=== PATIENT | female | born 1975 | race Caucasian/White ===

== ENCOUNTER 2016-10-08 09:49 | Inpatient (IN) ==
[2016-10-08 10:16] LABS: MANUAL DIFF NEEDED? NO
[2016-10-08] MEDS ORDERED: ZOFRAN IV ONE (10:32)
[2016-10-08] MEDS ORDERED: NS 1,000 ML IV ONE (10:32)
[2016-10-08] MEDS ORDERED: TORADOL IV ONE (10:32)
[2016-10-08] MEDS ORDERED: MORPHINE IV ONE (10:33)
[2016-10-08 10:34] LABS: BILIRUBIN URINE NEGATIVE (NEGATIVE); BLOOD URINE NEGATIVE (NEGATIVE); CLARITY CLEAR (CLEAR); COLOR YELLOW; GLUCOSE URINE NEGATIVE (NEGATIVE); LEUKOCYTES URINE NEGATIVE (NEGATIVE); NITRITE URINE NEGATIVE (NEGATIVE); PROTEIN URINE NEGATIVE (NEGATIVE); SP GRAVITY URINE 1.005; UROBILINOGEN URINE NORMAL
[2016-10-08 10:36] LABS: URINE CULTURE PL NEEDED? YES; URINE EPITHELIAL CELLS >10 /HPF (<10); URINE SOURCE CLEAN CATCH; URINE WBC <10 /HPF (<10)
[2016-10-08 10:40] LABS: AGAP 9; ALBUMIN 4.1 g/dL (3.5-5.0); ALKALINE PHOSPHATASE 63 U/L (32-104); AMYLASE 46 U/L (20-200); BUN 9 mg/dL (8-22); CALCIUM 9.2 mg/dL (8.8-10.2); CHLORIDE 104 mmol/L (98-107); COSMO 270; GOT 17 U/L (10-30); GPT 14 U/L (10-36); LIPASE 24 U/L (13-60); SODIUM 136 mmol/L (136-145); TCO2 22 mmol/L (25-35); TOTAL PROTEIN 7.2 g/dL (6.3-8.3)
[2016-10-08 10:41] LABS: BASO% 0.5 % (0.0-0.8); EOS# 0.11 X1000 (0.0-0.7); EOS% 1.8 % (0.0-10.0); HEMOGLOBIN 14.1 g/dL (12.0-16.0); IMM GRAN# 0.01 X1000 (0.0-0.04); IMM GRAN% 0.2 % (0.0-0.5); LYMPH# 1.83 X1000 (1.2-3.4); LYMPH% 29.4 % (20.5-51.1); MCH 29.8 PG (27-31); MCHC 32.8 g/dL (33-37); MCV 90.9 FL (81-99); MONO# 0.47 X1000 (0.11-0.59); MONO% 7.6 % (1.7-9.3); MPV 10.4 FL (7.4-10.4); NEUT% 60.5 % (42.2-75.2); PLT 323 X1000 (130-400); RBC 4.73 XMIL (4.2-5.4)
--- NOTE | 2016-10-08 12:17 | Diag Imaging Result Doc PS360 ---
EXAM: ABD/PELVIS/PULM ARTERIES HISTORY: RUQ severe abd and R lower chest pain TECHNIQUE: CT of the chest with intravenous contrast; CT of the abdomen and pelvis with intravenous contrast. COMMENT: There are no filling defects in the pulmonary arteries. The aorta is normal in caliber without evidence of dissection. There are no abnormal fluid collections. There is no evidence of acute pulmonary disease. There are degenerative disc changes in the thoracic spine. There is vacuum joint phenomenon in the sternoclavicular and manubrial sternal joints. CT of the abdomen: The liver is normal in appearance. The spleen is within normal limits. The adrenal glands are not enlarged. The pancreas is unremarkable. The gallbladder is clear. There is stool present in the colon. The kidneys are without evidence of hydronephrosis or mass. The appendix is normal in appearance. There is a moderate amount of stool in the ascending colon. No significant adenopathy is present. There is no evidence of bowel obstruction. CT of the pelvis: There are multiple follicular cysts present in the right ovary. The largest measures 1.8 cm. There is no evidence of free fluid. There has been hysterectomy. There is vacuum joint phenomenon in the sacroiliac joints. IMPRESSION: No evidence of acute thoracic disease. Right ovarian cyst. Mild constipation. Electronically signed by Esdras Garcia 10/08/2016 12:15 PM
--- NOTE | 2016-10-08 13:33 | PROVIDER DOCUMENTATION ---
This chart was entered by Vicki oMrales Scribe, acting as scribe for Windy Quiros MD. HPI-Abdominal Pain/GI Problem - General Chief Complaint: Abdominal Pain Stated Complaint: ABD PAIN Time Seen by Provider: 10/08/16 10:20 Source: patient - History of Present Illness-ABD Nature of Presenting Problems: Pt is 41 y/o F presents to the ED with RUQ pain. Pt states had an US yesterday and was told she would have to have a cholecytectomy. Pt states N. PT denies D. Pt states the pain has been present for 3 days. Pt states she was sent her by PCP. Abdominal Pain Onset Location: reports: RUQ Pain Radiation: reports: no radiation Quality of Pain: reports: aching Severity in ED: reports: mild Onset/Duration: reports: 3 days ago Timing: reports: still present Activities at Onset: reports: light activity Exposure to sick contacts?: No Modifying Factors: improves with: nothing Associated Symptoms: reports: nausea. denies: anxiety, arm pain, back/neck pain , chest pain, constipation, cough, diaphoresis, diarrhea, dizziness, EENT symptoms, fatigue, fever/chills, genitourinary problems, headaches, heartburn, joint pain, loss of appetite, malaise, muscle aches, sinus congestion/drainage, rash, seizure, shortness of breath, sensory/motor loss, pain with inspiration, swelling/mass in abdomen, syncope, vomiting, weakness, trouble walking Last BM: unsure Dark Stools Present?: reports: none noticed Rectal Bleeding: reports: none Rectal Pain: reports: none Emesis Description: reports: none Bruising or Bleeding Gums?: No Similar Symptoms Previously?: Yes Recently seen or treated by another doctor?: Yes (PCP ) Review of Systems - Adult - REVIEW OF SYSTEMS - ADULT Constitutional: reports: no symptoms reported Eyes: reports: no symptoms reported Ears, Nose, Mouth & Throat: reports: no symptoms reported Cardiovascular: reports: no symptoms reported Respiratory: reports: no symptoms reported Gastrointestinal: reports: abdominal pain (RUQ), nausea. denies: diarrhea, vomiting Genitourinary: reports: no symptoms reported Musculoskeletal: reports: no symptoms reported Integumentary: reports: no symptoms reported Neurological: reports: no symptoms reported Psychiatric: reports: no symptoms reported Endocrine: reports: no symptoms reported Hematologic/Lymphatic: reports: no symptoms reported Allergic/Immunologic: reports: no symptoms reported All Other Systems: Reviewed and Negative Past History - Adult - PAST MEDICAL HISTORY-ADULT Review of Records: reports: Nursing Assessment Review, Medications Reviewed, Social history reviewed & non-contributory. Major Childhood Illnesses: reports: denies history Cardiovascular: reports: denies history Respiratory: reports: denies history Gastrointestinal: reports: denies history Obstetrical/Gynecological: reports: denies history Genitourinary: reports: denies history Musculoskeletal: reports: denies history Neurological: reports: denies history Endocrine/Immune: reports: denies history Other Conditions: reports: denies history - PRIOR SURGERIES/PROCEDURES Surgical/Procedure History: reports: hysterectomy - IMMUNIZATION STATUS Childhood Immunizations: See Nurse Assessment Flu Vaccine: See Nurse Assessment - FAMILY HISTORY Family History: reviewed, not pertinent - SOCIAL HISTORY Smoking: denies Substance Use: denies Living Situation: family Physical Exam-General - PHYSICAL EXAM-ADULT Initial Vital Signs Reviewed: Yes - CONSTITUTIONAL General Appearance: appears well, alert, mild distress - EYES Eyes: PERRL/EOMI, pink conjunctivae - HEAD, EARS, NOSE, MOUTH & THROAT HENMT: normal ENT inspection - NECK Neck: normal inspection - RESPIRATORY Respiratory: chest non-tender, lungs clear, normal breath sounds - CARDIOVASCULAR Cardiovascular: normal peripheral pulses, regular rate, rhythm - GASTROINTESTINAL (ABDOMEN) Abdominal Exam: normal bowel sounds, soft, tenderness (RUQ), Stephens's sign - LYMPHATIC Lymphatic: no adenopathy - MUSCULOSKELETAL Back Exam: normal inspection Extremity: normal range of motion, normal inspection - SKIN Integumentary: normal color, normal turgor, warm/dry - NEUROLOGIC Neurologic: grossly normal - PSYCHIATRIC Psych/Mental Status: normal mood/affect, oriented x 3 Progress - PLAN OF CARE/RESULTS Progress/Plan/Lab Results: Vital Signs - 8 hr 10/08/16 09:54 Temperature 99.1 F Pulse Rate 81 Respiratory Rate 18 Blood Pressure 162/097 O2 Sat by Pulse Oximetry 99 Orders Category Date Time Status Saline Loc DIRECTED Care 10/08/16 10:04 Active NPO Diet 10/08/16 10:04 Active AMYLASE [CHEM] Stat Lab 10/08/16 10:13 Received CBC WITH ELECTRONIC DIFF [HEME] Stat Lab 10/08/16 10:13 Results COMPREHENSIVE METABOLIC PANEL [CHEM] Stat Lab 10/08/16 10:13 Received LIPASE [CHEM] Stat Lab 10/08/16 10:[address] W/POSS RFLX CULT [URINALYSIS] Stat Lab 10/08/16 10:04 Uncollected Result Diagrams: 10/08/16 10:13 10/08/16 10:13 - CT/MRI 1 CT Study: Abdomen, Pelvis Impression: Abnormal (right ovarian cyst. mild constipation) CT Results: no evidence of acute thoracic disease. - CONSULTS/PCP/HOSPITALIST Notification #1 *Consult/PCP/Hospitalist*: Dr. Ba Time Discussed: 10:51 Reason/Comments: Dr. Quiros consulted with Dr. Ba about Pt. #2 Consult: Dr. Ba Time Discussed: 13:25 Reason/Comments: Dr. Quiros consulted with Dr. Ba about Pt. #3 Consult: Dr. Arora (Hospitalist) Time Discussed: 13:29 (Hospitalist accepted admit ) Reason/Comments: Dr. Quiros consulted with Dr. Arora about admit of PT Departure - Departure Date of Disposition Decision: 10/08/16 Time of Disposition Decision: 13:33 DIAGNOSIS: RUQ pain, Atypical chest pain Disposition: ADMITTED INPATIENT 09 Certified Medical Emergency: Emergent Condition: Stable Referrals and Follow-Ups: Christopher Villarreal MD [Primary Care Provider] - - Critical Care Note This patient required my direct & personal management of CC.: No This chart was documented by the indicated scribe, (Vicki Morales Scribe) and accurately reflects the services I performed and decisions made by me, Windy Quiros MD, as attested by the provider's signature.
[2016-10-08] MEDS ORDERED: NS 1,000 ML IV SCH (15:38)
[2016-10-08] MEDS ORDERED: G.I. COCKTAIL PO ONE (15:41)
[2016-10-08] MEDS: NS 1,000 ML IV SCH (16:12)
[2016-10-08] MEDS: DEMEROL IV PRN ×2 (17:05→21:34)
[2016-10-08] MEDS ORDERED: G.I. COCKTAIL PO PRN (18:19)
--- NOTE | 2016-10-08 18:19 | HISTORY AND PHYSICAL ---
CHIEF COMPLAINT: Right upper quadrant pain. HISTORY OF PRESENT ILLNESS: This is a 41-year-old female with a history of gastroesophageal reflux disease, who presented to the emergency room complaining of right upper quadrant pain with nausea. She states this has been present for 3 days, it has increased in severity over this time. She describes the pain as an aching, squeezing type pain that starts just at her right rib cage. It feels that it travels up and back straight through to her back. She has accompanying nausea. She denies any vomiting, although she states she feels if she could vomit she might feel better. She denies any fever or chills, constipation or diarrhea. She did have an abdominal ultrasound performed yesterday, which revealed a positive Stephens sign without morphologic abnormality. She did call her primary care physician this morning regarding the increase in pain, and after finding ultrasound results out, reportedly he told her to come to the emergency room. Labs are essentially negative. CT of the abdomen and pelvis reveals no acute processes. She has no PE, with the liver, spleen, pancreas, gallbladder all being normal in appearance. She has no hydronephrosis nor mass. She has had a moderate amount of stool in ascending colon. No evidence of bowel obstruction. She was given morphine and Zofran in the emergency room with very little relief of pain. She has been admitted for further evaluation and treatment. PAST MEDICAL HISTORY: Gastroesophageal reflux disease. PAST SURGICAL HISTORY: Hysterectomy. SOCIAL HISTORY: She denies alcohol, tobacco, or illicit drug use. She does live at home with children. ALLERGIES: Phenergan and Benadryl which make her pace and feel as if she has to walk. HOME MEDICATIONS: Protonix 40 mg daily, Wellbutrin SR 150 b.i.d. REVIEW OF SYSTEMS: A 14-point review of systems is discussed with patient with pertinent positives stated in HPI. She denied chest pain, palpitations, syncope, dizziness, shortness of breath, PND, orthopnea, vomiting, diarrhea, constipation, black or bloody vomitus, black or bloody stools, hematuria, dysuria, frequency, urgency. PHYSICAL EXAMINATION: GENERAL: This is a 41-year-old female, who is pacing in the room at present. VITAL SIGNS: Blood pressure is 110/48 with a heart rate of 60, respirations 18, temperature is 98.5 oral with room air saturations of 98-99%. HEENT: Head is normocephalic, atraumatic. Pupils equal, round, react to light. EOMs are intact. Sclerae anicteric. Mucous membranes are dry. NECK: Supple. Trachea midline. CARDIOVASCULAR: Regular rate and rhythm. S1 and S2 appreciated. PULMONARY: Breath sounds are clear with no increased work of breathing noted. GASTROINTESTINAL: She has some epigastric tenderness. Abdomen is soft, nondistended, with bowel sounds in all 4 quadrants. BACK: No CVAT. No spine tenderness. MUSCULOSKELETAL: Good range of motion of joints. EXTREMITIES: No clubbing, cyanosis, or edema. Calves are nontender. Pulses are palpable x4. NEUROLOGIC: She is alert and oriented x3. DIAGNOSTICS: WBC is 6.2 with hemoglobin 14.1, hematocrit 43 and platelets of 323. Sodium is 136, potassium 4, BUN 9, creatinine 0.7 with a glucose of 95. Urinalysis is essentially negative. Abdominal ultrasound performed October 07 revealed a normal gallbladder and no acute processes. A CT of the chest, abdomen and pelvis revealed no acute processes. ASSESSMENT AND PLAN: 1. Right upper quadrant pain/epigastric pain. 2. Nausea. 3. Constipation. PLAN: She will be admitted to the hospital. She will remain n.p.o. We will give IV hydration as well as pain and nausea control. We will give a GI cocktail. Dr. Ba, General Surgery has been notified. He will evaluate her. We will repeat labs in the morning. Further treatments pending hospital course. Dictated by MENDY Hernandez for Adolfo Arora MD cc: MENDY Hernandez MD
[2016-10-08] MEDS ORDERED: BENTYL PO ONE (18:30)
[2016-10-08] MEDS: PROTONIX PO SCH (19:34)
[2016-10-08] MEDS: CARAFATE LIQUID PO SCH (19:34)
[2016-10-08] MEDS: ZOFRAN IV PRN (21:34)
[2016-10-08] MEDS: WELLBUTRIN SR PO SCH (23:28)
[2016-10-09] MEDS: ZOFRAN IV PRN ×2 (00:29→09:34)
[2016-10-09] MEDS: DEMEROL IV PRN ×7 (00:29→21:28)
[2016-10-09] MEDS: NS 1,000 ML IV SCH ×3 (00:32→18:07)
[2016-10-09] MEDS: CARAFATE LIQUID PO SCH ×5 (03:11→20:02)
[2016-10-09 05:44] LABS: HEMATOCRIT 37.4 % (37.0-47.0); HEMOGLOBIN 12.1 g/dL (12.0-16.0); MCH 30.8 PG (27-31); MCHC 32.4 g/dL (33-37); MCV 95.2 FL (81-99); MPV 10.3 FL (7.4-10.4); RBC 3.93 XMIL (4.2-5.4)
[2016-10-09 05:58] LABS: AGAP 10; ALBUMIN 3.5 g/dL (3.5-5.0); ALKALINE PHOSPHATASE 53 U/L (32-104); AMYLASE 39 U/L (20-200); BUN 9 mg/dL (8-22); CALCIUM 8.3 mg/dL (8.8-10.2); CHLORIDE 106 mmol/L (98-107); COSMO 277; GOT 13 U/L (10-30); GPT 11 U/L (10-36); LIPASE 19 U/L (13-60); POTASSIUM 3.7 mmol/L (3.5-5.1); SODIUM 140 mmol/L (136-145); TCO2 24 mmol/L (25-35); TOTAL BILIRUBIN 0.43 mg/dL (0.20-1.00); TOTAL PROTEIN 6.1 g/dL (6.3-8.3)
[2016-10-09] MEDS: PROTONIX PO SCH ×2 (06:29→20:02)
--- NOTE | 2016-10-09 08:34 | Diag Imaging Result Doc PS360 ---
EXAM: US GB < RUQ (LIMITED) HISTORY: pain TECHNIQUE: COMPARISON: 10/07/2016 FINDINGS: The gallbladder is unchanged from the prior study. There are no stones in the gallbladder and the wall is not thickened. The common bile duct measures 3 mm. The right kidney is unchanged from the prior exam. No hydronephrosis. The liver is prominent and there is mild fatty infiltration of the liver. No ascites. Normal aorta, inferior vena cava, and pancreas. IMPRESSION: No change from the recent exam. Electronically signed by Wade Cross 10/09/2016 8:31 AM
[2016-10-09] MEDS: WELLBUTRIN SR PO SCH ×2 (09:34→20:02)
[2016-10-09] MEDS: NORCO-7.5 PO PRN ×2 (11:36→20:01)
--- NOTE | 2016-10-09 14:43 | PROGRESS NOTE ---
DATE: 10/09/2016 SUBJECTIVE: This patient is still complaining of right upper quadrant pain. She denies nausea, vomiting, diarrhea. She is complaining of constipation as well. We did a CT scan of the abdomen and pelvis and also a CT angiogram of the chest that did not show any abnormality. Abdominal ultrasound is also normal. OBJECTIVE: Vital Signs: Temperature 98.2 degrees, pulse 65, respiratory rate 13, blood pressure 130/69, oxygen saturation 100% on room air. HEENT: Head normocephalic. No trauma. PERRLA. Neck: Supple. No JVD. No masses. Central trachea. Chest: Clear to auscultation. No wheezing. No rales. Abdomen: Soft. Tender to palpation at the level of the right upper quadrant. No rebound. Stephens sign is negative. Positive bowel sounds. Extremities: No edema. No clubbing. No cyanosis. Neurological: The patient is alert and oriented x3. No focal deficits. LABORATORY: WBC 6, hemoglobin 12.1, hematocrit 37.4, platelets 245,000. Sodium 140, potassium 3.7, chloride 106, bicarbonate 24, BUN 9, creatinine 0.7, glucose 87, calcium 8.3. ASSESSMENT AND PLAN: 1. Right upper quadrant pain/epigastric pain. I will continue with the same pain medication and I will add [place] 7.5. This patient is still complaining of right upper quadrant pain. All of the studies have been negative. 2. Nausea, resolved. 3. Constipation. This patient has been placed on MiraLAX daily. We will continue to monitor. 4. The source of this pain is unknown. CTA of the chest, abdomen, and pelvis is negative, as well as abdominal ultrasound. I will add 1 pain medication to this patient. She was not taking pain medications at home before, just Protonix and Wellbutrin. I will keep this patient on the medical floor and I will monitor. cc: Prakash Kenny MD
--- NOTE | 2016-10-09 21:23 | CONSULTATION ---
DATE OF CONSULTATION: 10/09/2016 REFERRING PHYSICIAN: Prakash Russell MD. PRIMARY CARE PROVIDER: Christopher Villarreal MD INDICATION FOR CONSULTATION: 1. Right upper quadrant pain. 2. Nausea. 3. Heartburn. HISTORY OF PRESENT ILLNESS: The patient is a 41-year-old white female who has a history of gastroesophageal reflux disease and H. pylori gastritis. She presented to the emergency room on 10/08/2016 with nausea and right upper quadrant pain. She had been referred by her primary care provider for an outpatient abdominal ultrasound which showed no evidence of stones but she has a positive Stephens sign on exam. She was referred to the emergency room for admission for possible cholecystectomy. In the emergency room, CT scan of the abdomen and pelvis revealed no acute process. CTA of her chest was negative for pulmonary embolus. She did have a moderate amount of stool in the ascending colon on film. She complained of severe abdominal pain in the right upper quadrant. The pain is made worse by position changes, lifting her arm, rotation and deep palpation. She received morphine, Zofran, Bentyl and a GI cocktail with minimal relief. She was then transported to [facility] for further evaluation. We are asked to participate in her care. 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 The pain began after she was stripping floors on her job. PAST MEDICAL HISTORY: 1. Gastroesophageal reflux disease. 2. H. pylori positive gastritis. 3. Depression. PAST SURGICAL HISTORY: Hysterectomy. SOCIAL HISTORY: Negative for alcohol, tobacco or recreational drug use. She works as a cylinder loader and lives at home with her children. MEDICATION ALLERGIES: 1. Phenergan. 2. Benadryl. HOME MEDICATIONS: 1. Protonix. 2. Wellbutrin. REVIEW OF SYSTEMS: Remarkable for the right upper quadrant pain. She notes mild heartburn and indigestion which is controlled with Protonix. She denies chest pain, palpitations, syncope, dizziness, shortness of breath, vomiting, diarrhea, constipation, melena, hematochezia, dysuria or urinary frequency. She notes nausea only when the pain is severe. PHYSICAL EXAM: Vital signs: Blood pressure is 130/69, pulse 65, respiration 13, temperature of 98.2 degrees. HEENT: Negative for jaundice. Pulmonary: Lungs are clear to auscultation with normal respiratory effort. Cardiovascular: Reveals regular rate and rhythm with no murmurs, gallops, or rubs. Abdomen: Reveals normoactive bowel sounds. The abdomen is soft and nontender. Musculoskeletal: She has pain to deep palpation over the right anterior chest wall from the midclavicular line around to the right flank. She also has chest wall tenderness on the posterior upper back. Extremities: Bilaterally are negative for cyanosis, clubbing, or edema. OBJECTIVE DATA: Reveals a hemoglobin of 12.1 with hematocrit of 37.4 and white count of 6.06 with 245,000 platelets. Sodium is 140, potassium 3.7, chloride 106, CO2 24, BUN 9, creatinine 0.7 and calcium of 8.7 and a glucose of 86. On palpation, her anterior chest wall is tender to deep palpation. The tenderness continues from the midclavicular line around and includes her right flank and upper back.Cardiovascular: She has regular rate and rhythm with no gallops or rubs. Abdominal Exam: Reveals normoactive bowel sounds. The abdomen is soft with moderate epigastric and right upper quadrant tenderness. There is no rebound or guarding. Extremities: Bilaterally are negative for cyanosis, clubbing, or edema. OBJECTIVE DATA: Reveals a hemoglobin 12.1 with hematocrit of 37.41 and a white count of 6.06. She has 245,000 platelets. Sodium is 140, potassium 3.7, chloride 106, CO2 is 24, BUN 9, creatinine 0.7 with a glucose of 87. Calcium is 8.3, total bilirubin 0.43, AST 13, ALT 11, alkaline phosphatase 53, total protein 6.1, albumin 3.5. Amylase is 39, lipase 19. Her abdominal ultrasound reveals no gallstones but there is a positive Stephens sign. CT scan reveals a normal liver, normal spleen, normal adrenal glands. In addition she had normal pancreas, normal gallbladder but significant constipation in the ascending colon. There was no bowel obstruction or adenopathy. She does have follicular cysts in the right ovary. There was no fluid and no other acute disease. IMPRESSION: 1. Right upper quadrant pain. 2. History of gastroesophageal reflux disease. 3. History of Helicobacter pylori gastritis. 4. Constipation. 5. Right chest wall pain. RECOMMENDATION: 1. I suspect the patient has musculoskeletal injury such as costochondritis based on our exam. However, she has epigastric pain and right upper quadrant pain with a history of GERD and H. pylori gastritis. It is reasonable to perform an EGD to assess for ulcer disease. 2. If this is unremarkable, I would check a HIDA scan to assess for biliary dysfunction. 3. Once we clear the upper GI tract will consider treatment with an anti-inflammatory to help with musculoskeletal pain. 4. Continue Protonix 40 mg p.o. b.i.d. for now. 5. I agree with MiraLAX 17 g p.o. daily for the constipation. 6. I agree with Carafate suspension in the event that this is gastroduodenitis and/or reflux disease. 7. Additional recommendations to follow based on her clinical course and results of her endoscopic findings. cc: Christopher Villarreal MD
[2016-10-10] MEDS: NORCO-7.5 PO PRN ×5 (00:35→21:10)
[2016-10-10] MEDS: DEMEROL IV PRN ×6 (01:31→23:20)
[2016-10-10] MEDS: CARAFATE LIQUID PO SCH ×4 (03:07→21:11)
[2016-10-10 05:47] LABS: MANUAL DIFF NEEDED? NO
[2016-10-10 05:51] LABS: BASO% 0.6 % (0.0-0.8); EOS# 0.08 X1000 (0.0-0.7); EOS% 1.6 % (0.0-10.0); HEMATOCRIT 38.9 % (37.0-47.0); HEMOGLOBIN 12.7 g/dL (12.0-16.0); LYMPH# 1.58 X1000 (1.2-3.4); LYMPH% 30.7 % (20.5-51.1); MCH 30.4 PG (27-31); MCHC 32.6 g/dL (33-37); MCV 93.1 FL (81-99); MONO# 0.38 X1000 (0.11-0.59); MONO% 7.4 % (1.7-9.3); MPV 10.4 FL (7.4-10.4); NEUT% 59.7 % (42.2-75.2); PLT 256 X1000 (130-400); RBC 4.18 XMIL (4.2-5.4)
[2016-10-10] MEDS: PROTONIX PO SCH ×2 (06:04→21:10)
[2016-10-10 06:20] LABS: AGAP 10; BUN 7 mg/dL (8-22); CALCIUM 8.6 mg/dL (8.8-10.2); CHLORIDE 107 mmol/L (98-107); COSMO 279; POTASSIUM 3.9 mmol/L (3.5-5.1); SODIUM 141 mmol/L (136-145); TCO2 24 mmol/L (25-35)
[2016-10-10] MEDS: WELLBUTRIN SR PO SCH ×2 (08:58→21:10)
[2016-10-10] MEDS: MIRALAX PO SCH (08:59)
--- NOTE | 2016-10-10 11:24 | PROGRESS NOTE ---
DATE: 10/10/2016 SUBJECTIVE: This is a 41-year-old female with a history of gastroesophageal reflux, presented to the emergency room complaining of right upper quadrant pain and nausea. Her doctor is Dr. Christopher Villarreal. He sent her here with concerned about biliary colic. Apparently ultrasound and CT of abdomen and pelvis did not reveal any acute process. No PE. Liver, spleen, pancreas, and gallbladder all seem to be normal. She still has this pain on her right side, up into the right chest and to her right back. PAST MEDICAL HISTORY: Unremarkable, except for gastroesophageal reflux. She is status post hysterectomy. She apparently she has had a history of endometriosis in the past. OBJECTIVE: General Appearance: Today she states the pain is about the same. Seems to be a positional component. Has to stand. Sitting down makes it worse. She does not report a history of postprandial pain or symptoms that sound classic for biliary colic. Vital signs: Temperature 97.8 degrees, pulse 62, respirations 16, blood pressure 126/64. Lungs: Clear in all lung hyman. Cardiovascular: Regular rhythm and rate without murmur or S3. Abdomen: Soft. Skin: Warm and dry. Good urine output. LAB: White count 5150, hematocrit 38, platelet count 256,000. Sodium 141, potassium 3.9, chloride 107, BUN 7, creatinine 0.7, blood sugar 90. ASSESSMENT AND PLAN: 1. Right upper quadrant pain. I suspect the patient may have a musculoskeletal injury. Her history seems to have a positional component. She does have a history of gastroesophageal reflux and H. pylori gastritis, so esophagogastroduodenoscopy is planned. 2. So far CT scan and ultrasound did not reveal of cholelithiasis or significant gallbladder disease. 3. Check a HIDA scan and look at biliary dysfunction. 4. If the gastrointestinal tract is clear, then I think we wait to try and treat musculoskeletal and potential musculoskeletal discomfort. She is on Protonix and proton pump inhibitor. We will continue this. Review of her orders, she is on Carafate 1 g q.6 hours. She is on Protonix 40 mg p.o. b.i.d. She is on MiraLAX 17 g daily. She is getting IV fluids at 125 mL of saline daily. cc: Jackson Payne MD
[2016-10-10] MEDS: NS 1,000 ML IV SCH ×2 (18:21→18:52)
--- NOTE | 2016-10-10 21:04 | PROGRESS NOTE ---
DATE: 10/10/2016 SUBJECTIVE: The patient states that the right upper quadrant pain persists. She denies nausea with vomiting and notes interval improvement of her heartburn with PPI therapy. Otherwise she denies complaints. OBJECTIVE: On exam, her blood pressure is 106/57, pulse 59, respiration 20, temperature of 97.8 degrees. The patient was eating lunch and family was at bedside. The remainder of the exam was deferred. OBJECTIVE DATA: Reveals a hemoglobin of 12.7 with hematocrit of 38.9 and a white count of 5.15. She has 256,000 platelets. Sodium is 141, potassium 3.9, chloride 107, CO2 24, BUN 7, creatinine 0.7 with a glucose of 90 and a calcium of 8.6. IMPRESSION: 1. Right upper quadrant pain. 2. Heartburn with pyrosis. 3. History of gastroesophageal reflux disease. 4. History of Helicobacter pylori gastritis. 5. Constipation. 6. Right chest wall pain. RECOMMENDATION: 1. Await EGD with biopsy in the morning. 2. Consider a HIDA scan depending on the results of her endoscopy. 3. Consider anti-inflammatory therapy to help with the musculoskeletal pain. 4. Continue Protonix 40 mg p.o. b.i.d. 5. Continue MiraLAX 17 g per day. 6. Will continue the Carafate suspension for now. If her EGD is negative, I would recommend discontinuing this therapy. 7. Additional recommendations to follow based on clinical course. cc: MD Pallavi Koenig MD
[2016-10-11] MEDS: CARAFATE LIQUID PO SCH ×4 (03:20→20:38)
[2016-10-11] MEDS: DEMEROL IV PRN ×5 (03:46→23:49)
[2016-10-11] MEDS: NORCO-7.5 PO PRN ×4 (04:39→22:36)
[2016-10-11] MEDS: PROTONIX PO SCH ×3 (05:16→20:39)
[2016-10-11] MEDS: NS 1,000 ML IV SCH ×5 (05:17→23:45)
[2016-10-11] MEDS: WELLBUTRIN SR PO SCH ×2 (08:04→20:39)
[2016-10-11] MEDS: MIRALAX PO SCH (08:04)
[2016-10-11] MEDS ORDERED: VERSED ONE (15:30)
[2016-10-11] MEDS ORDERED: DIPRIVAN 1% ONE ×2 (15:30→15:33)
[2016-10-11] MEDS ORDERED: TORADOL IV PRN (16:11)
--- NOTE | 2016-10-11 16:13 | PROGRESS NOTE ---
DATE: 10/11/2016 SUBJECTIVE: She had a rough night. Her IV came out. She has had a lot of pain in the right side and was not able to get her pain medicine and did not get much rest. OBJECTIVE: Vital signs: Temp 97.7 degrees, pulse 64, respirations 18, blood pressure 120/70. Lungs: Clear in all lung hyman. Cardiovascular: Regular rhythm and rate without murmur or S3. Abdomen: Soft. Skin: Warm and dry. Intake and output: Urine output 1500 mL. LAB: Reviewed from yesterday, unremarkable. ASSESSMENT AND PLAN: Right upper quadrant pain, right flank subcostal discomfort. It does have a positional component. Plan is to do an EGD this morning. I think it would be worthwhile to do a HIDA scan. Her abdominal and pelvic CT and ultrasound did not show much in the way of gallbladder pathology but this still could possibly be biliary colic. We will go ahead and get a HIDA scan ordered. She is on Carafate 1 g q.6, getting normal saline at 125 mL an hour. She is on Wellbutrin SR 150 mg b.i.d. and getting hydrocodone 7.5 q.4 hours p.r.n. pain. She has Dr. Barraza involved. Will check a HIDA scan and see what the EGD shows. cc: Jackson Payne MD
[2016-10-12] MEDS: CARAFATE LIQUID PO SCH ×4 (02:14→20:33)
[2016-10-12] MEDS: NS 1,000 ML IV SCH ×4 (02:18→18:55)
[2016-10-12] MEDS: PROTONIX PO SCH ×3 (06:06→20:34)
--- NOTE | 2016-10-12 09:24 | Diag Imaging Result Doc PS360 ---
HIDA SCAN W/ EJECTION FRACTION - 10/11/2016 INDICATION: ruq pain, n/v COMPARISON: None FINDINGS: 5.6 millicuries of Choletec was administered. There is normal uptake and clearance by the liver. There is normal excretion into the gallbladder and small bowel. A fatty meal was given. The gallbladder ejection fraction is 49%. IMPRESSION: Negative exam. An abnormally low ejection fraction (less than 35%) can be present in patients without gallbladder dyskinesis or chronic cholelithiasis to have other medical conditions. These include but are not limited to, patients with diabetic mellitus, irritable bowel syndrome, , gastroenteritis. peptic ulcer disease, and patients receiving morphine or nifedipine. Electronically signed by Ellis Villela 10/12/2016 9:22 AM
[2016-10-12] MEDS: DEMEROL IV PRN ×3 (09:42→17:07)
[2016-10-12] MEDS: ZOFRAN IV PRN (09:42)
[2016-10-12] MEDS: WELLBUTRIN SR PO SCH ×2 (09:43→20:34)
[2016-10-12] MEDS: MIRALAX PO SCH (09:52)
[2016-10-12] MEDS: NORCO-7.5 PO PRN ×4 (10:21→22:02)
--- NOTE | 2016-10-12 12:14 | OPERATIVE NOTE ---
PROCEDURE DATE: 10/11/2016 REFERRING PHYSICIAN: Dr. Prakash Kenny MD. PRIMARY CARE PROVIDER: Dr. Christopher Villarreal MD. INDICATION FOR PROCEDURE: 1. Right upper quadrant pain. 2. Nausea. 3. Heartburn. 4. History of peptic ulcer disease including Helicobacter pylori positive gastritis. PROCEDURE PERFORMED: Esophagogastroduodenoscopy. CONSENT: Informed consent was obtained from the patient prior to the procedure. The risks, benefits, and alternatives were discussed. MEDICATIONS: The patient received monitored anesthesia care. PERFORMING PHYSICIAN: Pallavi Barraza MD. ASSISTANTS: 1. ST Idania. 2. Merline El RN. 3. Madi Bacon CRNA. 4. Saad Fam MD (anesthesia). COMPLICATIONS: There were no complications. ESTIMATED BLOOD LOSS: None. SPECIMENS REMOVED: None. FINDINGS: After sedation was achieved, the upper endoscope was inserted to the third portion of the duodenum. The hypopharynx and tubular esophagus appeared normal. There was a GE junction at 40 cm from the incisors which also appeared normal. There was a hiatal hernia that spanned from 40-44 cm. In the gastric lumen, there was nonerosive gastritis in the antrum, fundus, and body. There were possible changes of portal hypertension. The pylorus appeared normal. The duodenal bulb and extending to the third portion of the duodenum appeared normal. The ampulla was visualized and appeared normal. There were no masses ulcers, or polyps seen. There was no Gibbs's esophagus. After the exam was complete, the lumen was decompressed and the scope was removed without incident. IMPRESSIONS: 1. Hiatal hernia. 2. Mild nonerosive gastritis. 3. Possible portal hypertension. 4. Nonerosive gastritis. 5. Normal duodenum. RECOMMENDATION: 1. Because of the patient's persistent right upper quadrant pain associated with nausea, I would check a HIDA scan with an ejection fraction in the morning. 2. Continue Protonix. 3. Continue Carafate. 4. Continue Bentyl after the HIDA scan. 5. Consider Toradol 15 mg q.8 hours x3 to 4 doses and then stop. 6. She does have fatty liver on ultrasound with no evidence of cirrhosis. She will need weight loss in the future. I will plan to further evaluate her fatty liver in the outpatient setting. cc: MD Christopher Rudd MD Omar J. Sosa-Chirinos, MD
--- NOTE | 2016-10-12 15:00 | PROGRESS NOTE ---
DATE: 10/12/2016 SUBJECTIVE: Had a better night. Still has discomfort in the right subcostal area, right upper quadrant. Plan is for EGD this morning. OBJECTIVE: Vital signs: Temperature 98.1 degrees, pulse 69, respirations 16, blood pressure 128/66. Lungs: Clear. Anterior lateral CVP less than 6 cm. Abdomen: Soft. No pedal edema. Genitourinary: Urine output is well over 5 L from yesterday. LAB: Reviewed from the , hematocrit stable at 38, electrolytes unremarkable, liver functions unremarkable. ASSESSMENT AND PLAN: So plan is esophagogastroduodenoscopy this morning. I suspect this right upper quadrant pain is musculoskeletal pain. 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 We also have a HIDA scan, I believe, ordered. So we will see what those results are. cc: Jackson Payne MD
[2016-10-12] MEDS ORDERED: DULCOLAX PR ONE (20:52)
[2016-10-12] MEDS ORDERED: BENTYL PO SCH (21:00)
[2016-10-12] MEDS: BENTYL PO SCH (21:58)
[2016-10-13] MEDS: NS 1,000 ML IV SCH ×3 (03:20→10:45)
--- NOTE | 2016-10-13 03:34 | PROGRESS NOTE ---
DATE: 10/12/2016 SUBJECTIVE: The patient states she continues to have right upper quadrant abdominal pain. She describes postprandial burning and fullness in the right upper quadrant. It is unaffected by foods, position change, or defecation. Her abdominal ultrasound, her CT scan, and a HIDA scan have all been normal relative to gallbladder function. She had did have evidence of constipation on CT scan. She denies nausea with vomiting. However, she is only tolerating 50% of her diet. On EGD, she was found to have a hiatal hernia, nonerosive gastritis, and a normal duodenum. She denies interval improvement with Carafate and Protonix twice daily. PHYSICAL EXAMINATION: Vital Signs: Her blood pressure is 138/83, pulse 76, respiration 18, temperature of 98.1 degrees. Abdominal: Normoactive bowel sounds. The abdomen is soft, nontender, with no rebound or guarding. Extremities: Negative for cyanosis, clubbing, or edema. OBJECTIVE DATA: No labs since 10/10/2016. IMPRESSION: 1. Persistent right upper quadrant pain. 2. Heartburn. 3. Dyspepsia, with pyrosis. 4. Constipation, based on CT scan. 5. Right rib pain. RECOMMENDATION: 1. The patient remains symptomatic by history. However, when she is observed at a distance, she is interacting with her family and laughing and talking. The source of her pain is unclear. However, her gallbladder has been extensively evaluated and does not appear to be the source of the pain. Therefore, I do not recommend surgical intervention at this time. 2. Begin Bentyl 20 mg 4 times a day. She reports daily bowel movements, but has significant constipation on CT scan. If her pain persists, it would be reasonable to consider a colonoscopy before one should consider surgical intervention. 3. Continue PPI therapy twice a day. As an outpatient, I would transition her to omeprazole 40 mg 1 p.o. b.i.d., as high-dose Protonix is rather expensive, and she may not be able to afford to continue this therapy at home. 4. Continue MiraLAX 17 g p.o. daily for the constipation. 5. She has not noticed a difference with the Carafate suspension improving her dyspepsia. Therefore, I would discontinue it today in an effort to streamline her regimens for outpatient management. 6. I recommend discontinuing the GI cocktail as well. 7. I would advance the patient to a regular diet. 8. As long as she tolerates her diet, it would be reasonable to pursue outpatient management. 9. Please have the patient return to our clinic in 2-3 weeks to assess interval progress. cc: MD Jackson Rudd MD David Francis, MD
[2016-10-13] MEDS: NORCO-7.5 PO PRN ×2 (04:03→08:20)
[2016-10-13] MEDS ORDERED: PROTONIX PO SCH (07:00)
[2016-10-13 07:43] VITALS: BP 124/70
[2016-10-13] MEDS: WELLBUTRIN SR PO SCH (08:14)
[2016-10-13] MEDS: MIRALAX PO SCH (08:14)
[2016-10-13] MEDS: BENTYL PO SCH (08:14)
--- NOTE | 2016-10-13 10:27 | DISCHARGE SUMMARY ---
ADMISSION DATE: 10/08/2016 DISCHARGE DATE: HISTORY OF PRESENT ILLNESS: This is a 41-year-old who was admitted on 10/08/2016 with a history of gastroesophageal reflux disease. Presented to the emergency room complaining of right upper quadrant pain and nausea. She stated that the pain was present for 3 days. Had increased severity over time. Describes the pain as aching and squeezing. There also seemed to be a positional component to it. It felt like it was just right under her ribcage. Feels like it travels back through her back. Sometimes, she has some nausea but when questioned about it, no vomiting. No fever. No chills. HOSPITAL COURSE: Ultrasound, CT was unrevealing. No gallbladder or liver disease. Dr. Barraza evaluated. Her EGD was really unremarkable. She had a hiatal hernia. She had nonerosive gastritis. Hercules like this was musculoskeletal pain. Possibly irritable bowel. Dr. Barraza started her on some Bentyl. She did feel better and was requesting to go home. Follow up with Dr. Barraza. Follow up with her primary care. DISCHARGE MEDICATIONS: Wellbutrin SR 150 mg b.i.d., Bentyl 20 mg p.o. 4 times a day for a couple weeks, [place] 7.5 p.r.n. We will stop that [place]. We will stop the Demerol. Protonix 40 mg a day, MiraLAX 17 g p.o. daily. She had some trouble with constipation so this may be irritable bowel with constipation. She had a HIDA scan with nuclear ejection fraction and it was a negative exam. cc: Jackson Payne MD
== END 2016-10-13 11:26 | disposition home or self-care (01) ==
LOC: P.ED 09:49 → SUATTDRO 09:50 → P.MEDSURG 09:50 → 4N 21:14
PROVIDERS: ATTEND Emergency Medicine